=== PATIENT | male | born 1960 | race Caucasian/White ===

== ENCOUNTER 2017-01-29 15:50 | Inpatient (IN) | payer BC ==
[~2017-01-29] VITALS: Ht 180.3 cm; Wt 67.7 kg
[2017-01-29] VITALS (16 sets, daily range): BP systolic 157–181; BP diastolic 89–105; PULSE 113–130; TEMP 99.4–99.6; O2SAT 93–97
[2017-01-29] MEDS ORDERED: PAXIL CR 12.512.5 MG (16:07)
[2017-01-29] MEDS ORDERED: PRINIVIL2.5 MG (16:08)
[2017-01-29] MEDS ORDERED: NORVASC2.5 MG (16:08)
[2017-01-29] MEDS ORDERED: HCTZ12.5TAB (16:08)
[2017-01-29 16:44] LABS: BASO # 0.1 (0.0-0.2); EOS # 0.1 (0.0-0.7); EOS % 1.1 % (0-4.0); GRAN # 2.9 (1.4-6.5); GRAN % 46.7 % (42.2-75.2); HEMATOCRIT 42.2 % (42.0-52.0); HEMOGLOBIN 14.7 g/dl (13.5-18.0); LYMPH # 2.6 (1.2-3.4); LYMPH % 43.1 % (20.0-51.0); MEAN CELL VOLUME 89 fl (80.0-100.0); MEAN CORPUSCULAR HEMOGLOBIN 31 pg (27.0-31.0); MEAN CORPUSCULAR HGB CONC 35 g/dl (33.0-37.0); MEAN PLATELET VOLUME 9.6 fl (7.4-10.4); MONO # 0.4 (0.1-0.6); MONO % 6.9 % (1.7-9.3); PLATELET COUNT 189 K/mm3 (130-400); RED BLOOD COUNT 4.72 M/mm3 (4.20-5.60); WHITE BLOOD COUNT 6.1 K/mm3 (4.8-10.8)
[2017-01-29 16:52] LABS: AMPHETAMINE URINE NEGATIVE; BARBITURATES URINE NEGATIVE; BENZODIAZEPINES URINE NEGATIVE; BUPRENORPHINE URINE NEGATIVE; METHADONE URINE NEGATIVE; OPIATES URINE NEGATIVE; OXYCODONE URINE NEGATIVE; PHENCYCLIDINE URINE NEGATIVE; PROPOXYPHENE URINE NEGATIVE; THC CANNABINOIDS URINE NEGATIVE
[2017-01-29 17:02] LABS: ADJUSTED CALCIUM 8.2 mg/dL (8.4-10.2); ALANINE AMINOTRANSFERASE 62 U/L (21-72); ALBUMIN 4.2 gm/dL (3.5-5.0); ALKALINE PHOSPHATASE 83 U/L (50-136); ANION GAP 14 mmol/L (7-16); BILIRUBIN,TOTAL 0.7 mg/dL (0.0-1.0); BLOOD UREA NITROGEN 12 mg/dL (9-20); CALCIUM 8.4 mg/dL (8.4-10.2); CARBON DIOXIDE 25 mmol/L (22-30); CHLORIDE 97 mmol/L (98-107); CREATININE, serum 0.71 mg/dL (0.66-1.25); GLUCOSE 76 mg/dL (74-106); POTASSIUM 4.1 mmol/L (3.4-5.0); SODIUM 137 mmol/L (137-145); TOTAL PROTEIN 7.2 gm/dL (6.4-8.2)
[2017-01-29 17:04] LABS: ACETAMINOPHEN < 10 ug/mL (10-30); SALICYLATE < 1.0 mg/dL
[2017-01-29 19:24] LABS: INR 0.9 (0.8-3.0); PROTHROMBIN TIME 9.9 SECONDS (9.7-12.8)
[2017-01-29 19:27] LABS: PARTIAL THROMBOPLASTIN TIME 30.3 SECONDS (26.0-37.0)
[2017-01-29 19:39] LABS: MAGNESIUM 1.9 mg/dL (1.6-2.3)
[2017-01-29] MEDS ORDERED: ZOCOR5 MG (20:29)
[2017-01-29] MEDS ORDERED: MINIPRESS 1M1 MG/CAP (20:30)
[2017-01-29 23:56] LABS: PH 6 (5-8); SQUAMOUS EPITHELIAL None Seen /hpf; URINE APPEARANCE Clear; URINE BACTERIA None Seen /hpf; URINE BILIRUBIN Negative (NEGATIVE); URINE BLOOD 2+ (NEGATIVE); URINE COLOR Yellow; URINE GLUCOSE Negative (NEGATIVE); URINE KETONE Negative (NEGATIVE); URINE UROBILINOGEN Negative (NEGATIVE)
[2017-01-30] VITALS (91 sets, daily range): BP systolic 145–170; BP diastolic 86–112; PULSE 80–132; TEMP 97.4–98.3; O2SAT 76–100
[2017-01-30 06:15] LABS: BASO % 0.6 % (0.0-2.0); GRAN # 5.4 (1.4-6.5); GRAN % 83.4 % (42.2-75.2); HEMATOCRIT 42.4 % (42.0-52.0); HEMOGLOBIN 14.9 g/dl (13.5-18.0); LYMPH # 0.8 (1.2-3.4); LYMPH % 11.7 % (20.0-51.0); MEAN CELL VOLUME 90 fl (80.0-100.0); MEAN CORPUSCULAR HEMOGLOBIN 32 pg (27.0-31.0); MEAN CORPUSCULAR HGB CONC 35 g/dl (33.0-37.0); MEAN PLATELET VOLUME 10.3 fl (7.4-10.4); MONO # 0.3 (0.1-0.6); PLATELET COUNT 181 K/mm3 (130-400); RED BLOOD COUNT 4.71 M/mm3 (4.20-5.60); REDCELL DISTRIBUTION WIDTH-CV 13.3 % (11.5-14.5); WHITE BLOOD COUNT 6.4 K/mm3 (4.8-10.8)
[2017-01-30 06:23] LABS: ALBUMIN 4.2 gm/dL (3.5-5.0); CALCIUM 9.2 mg/dL (8.4-10.2); CREATININE, serum 0.74 mg/dL (0.66-1.25); POTASSIUM 4.3 mmol/L (3.4-5.0); TOTAL PROTEIN 7.1 gm/dL (6.4-8.2)
[2017-01-31] VITALS (327 sets, daily range): BP systolic 126–159; BP diastolic 75–95; PULSE 66–79; TEMP 97.5–98.8; O2SAT 36–100
[2017-01-31 06:20] LABS: BILIRUBIN,DIRECT 0.5 mg/dL (0.0-0.4)
[2017-01-31 06:24] LABS: ALBUMIN 3.6 gm/dL (3.5-5.0); CALCIUM 8.8 mg/dL (8.4-10.2); CREATININE, serum 0.66 mg/dL (0.66-1.25); MAGNESIUM 1.9 mg/dL (1.6-2.3); POTASSIUM 3.4 mmol/L (3.4-5.0); TOTAL PROTEIN 6.6 gm/dL (6.4-8.2)
== END 2017-01-31 11:45 | disposition home or self-care (01) | DRG 897 ==
LOC: COL.ER 15:50 → ICU 19:00
PROVIDERS: Emergency Medicine; Family Medicine; Nurse Practitioner Family
DX: F10.229 Alcohol dependence with intoxication, unspecified (principal); I10 Essential (primary) hypertension; E86.0 Dehydration; F17.210 Nicotine dependence, cigarettes, uncomplicated; Y90.8 Blood alcohol level of 240 mg/100 ml or more
CPT/HCPCS: 99223-AI; C9113; J0360; J2060; J2405; J3411; J7030; J7512

== ENCOUNTER 2017-02-02 11:39 | Inpatient (IN) | payer BC ==
[~2017-02-02] VITALS: Ht 180.3 cm; Wt 68.4 kg
[2017-02-02] VITALS (65 sets, daily range): BP systolic 109–159; BP diastolic 72–95; PULSE 104–128; TEMP 97.6–99.1; O2SAT 93–98
[~2017-02-02 11:39] MED LIST: HCTZ12.5TAB; MINIPRESS 1M1 MG/CAP; NORVASC2.5 MG; PAXIL CR 12.512.5 MG; PRINIVIL2.5 MG; ZOCOR5 MG
[2017-02-02 12:29] LABS: HEMATOCRIT 43.2 % (42.0-52.0); HEMOGLOBIN 15.3 g/dl (13.5-18.0); MEAN CELL VOLUME 90 fl (80.0-100.0); MEAN CORPUSCULAR HEMOGLOBIN 32 pg (27.0-31.0); MEAN CORPUSCULAR HGB CONC 35 g/dl (33.0-37.0); MEAN PLATELET VOLUME 10.3 fl (7.4-10.4); PLATELET COUNT 139 K/mm3 (130-400); RED BLOOD COUNT 4.79 M/mm3 (4.20-5.60); REDCELL DISTRIBUTION WIDTH-CV 13.2 % (11.5-14.5); WHITE BLOOD COUNT 6.1 K/mm3 (4.8-10.8)
[2017-02-02 12:51] LABS: ADJUSTED CALCIUM 8.4 mg/dL (8.4-10.2); ALBUMIN 4.1 gm/dL (3.5-5.0); BILIRUBIN,TOTAL 0.9 mg/dL (0.0-1.0); CALCIUM 8.5 mg/dL (8.4-10.2); CREATININE, serum 0.86 mg/dL (0.66-1.25); POTASSIUM 3.7 mmol/L (3.4-5.0); TOTAL PROTEIN 7.1 gm/dL (6.4-8.2)
[2017-02-02] MEDS ORDERED: PAXIL 20MG20 MG PO (15:49)
[2017-02-02] MEDS ORDERED: PRINIVIL20 MG PO (15:49)
[2017-02-02] MEDS ORDERED: ZOCOR 40MG40 MG PO (15:50)
[2017-02-02] MEDS ORDERED: NORVASC 5MG5 MG/TAB PO (15:50)
[2017-02-02 19:40] LABS: PH 5 (5-8); SQUAMOUS EPITHELIAL None Seen /hpf; URINE APPEARANCE Hazy; URINE BACTERIA None Seen /hpf; URINE BILIRUBIN Negative (NEGATIVE); URINE BLOOD 1+ (NEGATIVE); URINE COLOR Yellow; URINE GLUCOSE Negative (NEGATIVE); URINE KETONE Negative (NEGATIVE); URINE RBC 0-2 /hpf; URINE UROBILINOGEN Negative (NEGATIVE); URINE WBC 0-2 /hpf
[2017-02-02 20:01] LABS: AMPHETAMINE URINE NEGATIVE; BARBITURATES URINE NEGATIVE; BENZODIAZEPINES URINE POSITIVE; BUPRENORPHINE URINE NEGATIVE; METHADONE URINE NEGATIVE; OPIATES URINE NEGATIVE; OXYCODONE URINE NEGATIVE; PHENCYCLIDINE URINE NEGATIVE; PROPOXYPHENE URINE NEGATIVE; THC CANNABINOIDS URINE NEGATIVE
[2017-02-03] VITALS (8 sets, daily range): BP systolic 130–163; BP diastolic 82–105; PULSE 77–103; TEMP 97.5–99
[2017-02-03 12:48] LABS: HEMATOCRIT 38.5 % (42.0-52.0); HEMOGLOBIN 13.4 g/dl (13.5-18.0); MEAN CELL VOLUME 91 fl (80.0-100.0); MEAN CORPUSCULAR HEMOGLOBIN 32 pg (27.0-31.0); MEAN CORPUSCULAR HGB CONC 35 g/dl (33.0-37.0); MEAN PLATELET VOLUME 9.9 fl (7.4-10.4); PLATELET COUNT 112 K/mm3 (130-400); RED BLOOD COUNT 4.25 M/mm3 (4.20-5.60); REDCELL DISTRIBUTION WIDTH-CV 13.2 % (11.5-14.5); WHITE BLOOD COUNT 5.6 K/mm3 (4.8-10.8)
[2017-02-03 13:25] LABS: ALANINE AMINOTRANSFERASE 49 U/L (21-72); ALBUMIN 3.2 gm/dL (3.5-5.0); ALKALINE PHOSPHATASE 65 U/L (50-136); ANION GAP 7 mmol/L (7-16); BILIRUBIN,TOTAL 0.9 mg/dL (0.0-1.0); BLOOD UREA NITROGEN 23 mg/dL (9-20); CALCIUM 8.4 mg/dL (8.4-10.2); CARBON DIOXIDE 23 mmol/L (22-30); CHLORIDE 106 mmol/L (98-107); CREATININE, serum 0.76 mg/dL (0.66-1.25); GLUCOSE 85 mg/dL (74-106); SODIUM 136 mmol/L (137-145); TOTAL PROTEIN 5.7 gm/dL (6.4-8.2)
[2017-02-04] VITALS: BP 151/94; PULSE 77; TEMP 98.4
[2017-02-04 04:00] VITALS: BP 135/78; PULSE 82; TEMP 97.8
[2017-02-04 08:03] VITALS: BP 164/112; PULSE 88; TEMP 97.8
== END 2017-02-04 11:45 | disposition home or self-care (01) | DRG 897 ==
LOC: COL.ER 11:39 → ICU 14:13 → EDBEDREQ 14:21 → ICU 02-04 11:45
PROVIDERS: Emergency Medicine; Internal Medicine Cardiovascular Disease
DX: F10.129 Alcohol abuse with intoxication, unspecified (principal); I10 Essential (primary) hypertension; E78.5 Hyperlipidemia, unspecified; Y90.8 Blood alcohol level of 240 mg/100 ml or more; F17.210 Nicotine dependence, cigarettes, uncomplicated
CPT/HCPCS: 99223-AI; 99231-AI; J2060; J3411; J3475; J7030